=== PATIENT | male | born 1980 | race Caucasian/White ===

== ENCOUNTER → 2016-12-08 | Outpatient (CLI) | payer BC ==
--- NOTE | 2016-12-08 11:34 | RADIOLOGY REPORT PS360 ---
FOOT-RT-3 VIEWS HISTORY: PLANTAR FASCIITIS ORDERING PHYSICIAN: Williams Scott MD PATIENT AGE: 36 years COMPARISON: None FINDINGS: No fracture or dislocation. No lytic or blastic change. There is normal mineralization.. The joint spaces are well-preserved. No significant degenerative/arthritic changes. No erosive changes evident. No calcaneal spur apparent IMPRESSION: Negative, no acute finding
--- NOTE | 2016-12-08 11:34 | RADIOLOGY REPORT PS360 ---
FOOT-LT-3 VIEWS HISTORY: PLANTAR FASCIITIS ORDERING PHYSICIAN: Williams Scott MD PATIENT AGE: 36 years COMPARISON: None FINDINGS: No fracture or dislocation. No lytic or blastic change. There is normal mineralization.. The joint spaces are well-preserved. No significant degenerative/arthritic changes. No erosive changes evident. No calcaneal spur evident IMPRESSION: Negative left foot, no acute finding
== END ==
LOC: RAD 10:37
DX: M72.2 Plantar fascial fibromatosis (principal)